=== PATIENT | female | born 1970 | race Caucasian/White ===

== ENCOUNTER 2018-03-30 04:55 | Inpatient (IN) | payer MEDICAID ==
[~2018-03-30] VITALS: Ht 167.6 cm; Wt 81.6 kg
[2018-03-30] MEDS ORDERED: ONDANSETRON HCL 4MG/2ML INJ IV STA (06:16)
[2018-03-30] MEDS ORDERED: MORPHINE SULFATE 4 MG/ML CPJ (NOT FOR IM USE) IV STA (06:16)
[2018-03-30] MEDS ORDERED: ASPIRIN 81MG TABLET PO ONE (06:30)
[2018-03-30 06:33] LABS: BASOPHILS % 0.6 % (0.0-2.0); EOSINOPHILS % 1.1 % (0.0-5.0); HEMATOCRIT. 34.9 % (36.0-48.0); HEMOGLOBIN. 12.1 g/dL (12.0-16.0); LYMPHOCYTES % 17.5 % (20.0-50.0); MEAN CORPUSCULAR HEMOGLOBIN 30.2 pg (28.0-32.0); MEAN CORPUSCULAR VOLUME 86.9 fL (81.0-99.0); MEAN PLATELET VOLUME 6.9 fl (7.4-10.4); MONOCYTES % 4.2 % (2.0-8.0); NEUTROPHILS % 76.6 % (40.0-76.0); PLATELET 270 x1000/uL (130-400); RED BLOOD CELL COUNT 4.01 mill/uL (4.2-5.4); RED CELL DISTRIBUTION WIDTH 13.4 % (11.6-14.6)
[2018-03-30 06:41] LABS: CHLORIDE 109 mEq/L (98-107)
[2018-03-30] MEDS ORDERED: ENOXAPARIN 80MG/0.8ML SYR SUBCUT ONE (07:00)
[2018-03-30 07:44] LABS: PARTIAL THROMBOPLASTIN TIME 27.5 sec (23.4-31.0); PROTHROMBIN TIME 9.7 sec (9.1-11.1)
[2018-03-30 07:52] LABS: HCG SCREEN NEGATIVE
[2018-03-30 10:10] VITALS: BP 115/70
[2018-03-30] MEDS ORDERED: IPRATROPIUM/ALBUTEROL 0.5-3(2.5)MG/3ML NEB INH PRN (11:00)
[2018-03-30] MEDS ORDERED: DEXTROSE 50% WATER 50ML SYRINGE IV PRN (11:00)
[2018-03-30] MEDS ORDERED: TRAMADOL 50MG TABLET PO PRN (11:00)
[2018-03-30] MEDS ORDERED: CLONIDINE 0.1MG TABLET PO PRN (11:00)
[2018-03-30] MEDS ORDERED: NA PHOS,M-B/NA PHOS,DI-BA ENEMA 118ML PR PRN (11:00)
[2018-03-30] MEDS ORDERED: NITROGLYCERIN 0.4MG TABLET SL SL PRN (11:00)
[2018-03-30] MEDS ORDERED: KETOROLAC 15MG/ML VIAL IV PRN (11:00)
[2018-03-30] MEDS ORDERED: MAGNESIUM/ALUMINUM HYDROXIDE/SIMETHICONE 30ML UDC PO PRN (11:00)
[2018-03-30] MEDS ORDERED: ACETAMINOPHEN 325MG TABLET PO PRN (11:00)
[2018-03-30] MEDS ORDERED: LORAZEPAM 0.5MG TABLET PO PRN (11:00)
[2018-03-30] MEDS ORDERED: DOCUSATE SODIUM 100MG CAPSULE PO PRN (11:00)
[2018-03-30] MEDS ORDERED: GUAIFENESIN 200MG/10ML SUGAR FREE UDC PO PRN (11:00)
[2018-03-30] MEDS ORDERED: ONDANSETRON HCL 4MG/2ML INJ IV PRN (11:00)
[2018-03-30] MEDS ORDERED: ONDANSETRON 4MG ODT PO PRN (11:15)
[2018-03-30 12:00] VITALS: BP 125/64
[2018-03-30] MEDS: BLOOD SUGAR DIAGNOSTIC STRIP TEST SCH ×3 (12:39→21:00)
[2018-03-30] MEDS: AMLODIPINE 5MG TABLET PO SCH ×2 (13:08→22:02)
[2018-03-30] MEDS: INSULIN LISPRO 100 UNITS/ML SUBCUT SCH ×3 (13:09→22:14)
[2018-03-30 16:00] VITALS: BP 122/67
[2018-03-30 20:00] VITALS: BP 142/72
[2018-03-30] MEDS ORDERED: ZOLPIDEM TARTRATE 5MG TABLET PO PRN (21:00)
[2018-03-30 21:04] LABS: CLARITY URINE CLEAR (CLEAR); COLOR URINE YELLOW (YELLOW); KETONES URINE NEGATIVE (NEGATIVE); LEUKOCYTE ESTERASE URINE NEGATIVE (NEGATIVE); NITRITE URINE NEGATIVE (NEGATIVE); OCCULT BLOOD URINE TRACE (NEGATIVE); PROTEIN URINE 4+ (NEGATIVE); SPECIFIC GRAVITY URINE 1.019 (1.005-1.030)
[2018-03-30 21:37] LABS: PHENCYCLIDINE URINE SCREEN NEGATIVE (NEGATIVE)
[2018-03-30 21:38] LABS: *AMPHETAMINES SCREEN URINE NEGATIVE (NEGATIVE); *BARBITURATES SCREEN URINE NEGATIVE (NEGATIVE); *BENZODIAZEPINES SCREEN URINE NEGATIVE (NEGATIVE); CANNABINOID URINE SCREEN NEGATIVE (NEGATIVE)
[2018-03-30 21:39] LABS: *COCAINE SCREEN URINE NEGATIVE (NEGATIVE); METHADONE URINE SCREEN NEGATIVE (NEGATIVE); OPIATES URINE SCREEN PRESUMTIVE POSITIVE (NEGATIVE)
[2018-03-30] MEDS: ATORVASTATIN CALCIUM 40MG TABLET PO SCH (22:02)
[2018-03-30] MEDS: METOPROLOL TARTRATE 25MG TABLET PO SCH (22:03)
[2018-03-30] MEDS: FAMOTIDINE 20MG TABLET PO SCH (22:08)
[2018-03-30] MEDS: ENOXAPARIN 80MG/0.8ML SYR SUBCUT SCH (22:09)
[2018-03-30] MEDS: INSULIN GLARGINE UD 100 UNITS/ML SYR SUBCUT SCH (22:15)
[2018-03-31] VITALS (8 sets, daily range): BP systolic 127–169; BP diastolic 63–77
[2018-03-31 01:26] LABS: CREATINE KINASE MB FRACTION 4.5 ng/mL (0.5-3.6)
[2018-03-31] MEDS: BLOOD SUGAR DIAGNOSTIC STRIP TEST SCH ×4 (05:27→21:21)
[2018-03-31] MEDS: INSULIN LISPRO 100 UNITS/ML SUBCUT SCH ×4 (07:52→21:28)
[2018-03-31 08:24] LABS: CREATINE KINASE MB FRACTION 3.9 ng/mL (0.5-3.6)
[2018-03-31] MEDS: ASPIRIN 325MG EC TABLET PO SCH (08:47)
[2018-03-31] MEDS: METOPROLOL TARTRATE 25MG TABLET PO SCH ×2 (08:47→21:17)
[2018-03-31] MEDS: AMLODIPINE 5MG TABLET PO SCH ×2 (08:48→21:17)
[2018-03-31] MEDS: ENOXAPARIN 80MG/0.8ML SYR SUBCUT SCH ×2 (08:48→21:17)
[2018-03-31] MEDS: FAMOTIDINE 20MG TABLET PO SCH ×2 (08:48→21:16)
[2018-03-31] MEDS: ATORVASTATIN CALCIUM 40MG TABLET PO SCH (21:16)
[2018-03-31] MEDS: RANOLAZINE 500 MG TAB.SR.12H PO SCH (21:16)
[2018-03-31] MEDS: LISINOPRIL 10MG TABLET PO SCH (21:17)
[2018-03-31] MEDS: INSULIN GLARGINE UD 100 UNITS/ML SYR SUBCUT SCH (21:29)
[2018-04-01] VITALS: BP 149/69
[2018-04-01 04:00] VITALS: BP 155/72
[2018-04-01] MEDS: BLOOD SUGAR DIAGNOSTIC STRIP TEST SCH ×2 (07:05→12:40)
[2018-04-01 07:23] LABS: BASOPHILS % 0.8 % (0.0-2.0); EOSINOPHILS % 2.1 % (0.0-5.0); HEMATOCRIT. 35.1 % (36.0-48.0); HEMOGLOBIN. 12.3 g/dL (12.0-16.0); LYMPHOCYTES % 28.8 % (20.0-50.0); MEAN CORPUSCULAR HEMOGLOBIN 30.5 pg (28.0-32.0); MEAN CORPUSCULAR VOLUME 86.7 fL (81.0-99.0); MEAN PLATELET VOLUME 7.3 fl (7.4-10.4); MONOCYTES % 4.6 % (2.0-8.0); NEUTROPHILS % 63.7 % (40.0-76.0); PLATELET 284 x1000/uL (130-400); RED BLOOD CELL COUNT 4.05 mill/uL (4.2-5.4); RED CELL DISTRIBUTION WIDTH 13.5 % (11.6-14.6)
[2018-04-01 08:00] VITALS: BP 149/71
[2018-04-01] MEDS: INSULIN LISPRO 100 UNITS/ML SUBCUT SCH ×2 (08:21→14:08)
[2018-04-01] MEDS: FAMOTIDINE 20MG TABLET PO SCH (08:26)
[2018-04-01] MEDS: ASPIRIN 325MG EC TABLET PO SCH (08:27)
[2018-04-01] MEDS: METOPROLOL TARTRATE 25MG TABLET PO SCH (08:28)
[2018-04-01] MEDS: AMLODIPINE 5MG TABLET PO SCH (08:28)
[2018-04-01] MEDS: ENOXAPARIN 80MG/0.8ML SYR SUBCUT SCH (08:29)
[2018-04-01] MEDS: RANOLAZINE 500 MG TAB.SR.12H PO SCH (08:29)
[2018-04-01] MEDS: LISINOPRIL 10MG TABLET PO SCH (08:32)
[2018-04-01 12:00] VITALS: BP 163/77
[2018-04-01 16:00] VITALS: BP 153/75
== END 2018-04-01 19:20 | disposition left against medical advice (07) | DRG 190 ==
LOC: ER 05:03 → 7WST 07:15 → EDBEDREQ 07:18 → EDBEDREQTM 07:18 → ENRESERV 07:25
PROVIDERS: ADMIT Internal Medicine; ATTEND Internal Medicine
DX: I21.4 Non-ST elevation (NSTEMI) myocardial infarction (principal); E43 Unspecified severe protein-calorie malnutrition; E11.65 Type 2 diabetes mellitus with hyperglycemia; I25.110 Atherosclerotic heart disease of native coronary artery with unstable angina pectoris; I11.9 Hypertensive heart disease without heart failure; Z53.21 Procedure and treatment not carried out due to patient leaving prior to being seen by health care provider; E78.00 Pure hypercholesterolemia, unspecified; I25.5 Ischemic cardiomyopathy; Z79.4 Long term (current) use of insulin; Z79.899 Other long term (current) drug therapy; Z82.49 Family history of ischemic heart disease and other diseases of the circulatory system; Z83.3 Family history of diabetes mellitus; Z98.891 History of uterine scar from previous surgery; Z95.1 Presence of aortocoronary bypass graft; Z95.5 Presence of coronary angioplasty implant and graft; Z68.29 Body mass index [BMI] 29.0-29.9, adult
CPT/HCPCS: 36415; 71045; 80048; 80053; 80061; 80305; 81003; 82550; 82553; 82962; 83036; 83735; 83880; 84484; 84703; 85025; 85610; 85730; 93005; 93306; 93970; 96372; 96374; 96375; 99285; J1650; J1815; J2270; J2405